=== PATIENT | male | born 1995 | race Caucasian/White ===

== ENCOUNTER 2016-08-30 18:24 | Emergency (ER) | payer MEDICAID, OTHER ==
[~2016-08-30] VITALS: Ht 177.8 cm; Wt 76.2 kg
--- NOTE | 2016-08-30 18:48 | NUR ---
Patient discharged to home in stable conditon. Written and verbal after care instructions given. Patient verbalizes understanding of instructions.
== END 2016-08-30 18:52 | disposition home or self-care (01) ==
LOC: ER 18:27
DX: S01.111A Laceration without foreign body of right eyelid and periocular area, initial encounter (principal); X58.XXXA Exposure to other specified factors, initial encounter; Y93.89 Activity, other specified; Y99.8 Other external cause status; Y92.89 Other specified places as the place of occurrence of the external cause
CPT/HCPCS: 99281; A4663

== ENCOUNTER 2021-12-08 08:33 | Emergency (ER) | payer BC, MEDICAID ==
[~2021-12-08] VITALS: Ht 177.8 cm; Wt 80.3 kg
--- NOTE | 2021-12-08 08:48 | NUR ---
Pt in bed with ice pack on right foot. No increasing pain. with very slight swelling, no redness, with sensation intact and ROM. distal pulses strong. Skin is dry, pink and warm.
--- NOTE | 2021-12-08 08:49 | NUR ---
Xray on the way.
[2021-12-08] MEDS ORDERED: NAPR-1009 PO (09:29)
--- NOTE | 2021-12-08 09:56 | NUR ---
Max wrap done on the right foot. Crutch training by charge nurse Erika including work note.
[2021-12-08 09:59] VITALS: BP 116/68
== END 2021-12-08 09:59 | disposition home or self-care (01) ==
LOC: ER 08:33
DX: S93.401A Sprain of unspecified ligament of right ankle, initial encounter (principal); X50.9XXA Other and unspecified overexertion or strenuous movements or postures, initial encounter; Y93.67 Activity, basketball; Y92.310 Basketball court as the place of occurrence of the external cause; S99.921A Unspecified injury of right foot, initial encounter
CPT/HCPCS: 73610; 73630; A4663

== ENCOUNTER 2022-01-14 19:40 | Emergency (ER) | payer SELFPAY ==
[~2022-01-14 19:40] MED LIST: NAPR-1009 PO
--- NOTE | 2022-01-14 22:00 | NUR ---
PATIENT WAS JUST CALLED TO BE TRIAGED AT THIS TIME DUE TO NO BEDS AVAILABLE IN THE ER AND HIGH ACUITY IN THE ER, BUT PATIENT WAS NOT PRESENT IN THE WAITING ROOM OR OUTSIDE OF ER.
--- NOTE | 2022-01-15 | NUR ---
PATIENT WAS CALLED TO BE TRIAGED BUT WAS NOT PRESENT IN THE WAITING ROOM OR OUTSIDE OF ER. PATIENT WAS NOT TRIAGED OR SEEN BY ERMD.
== END 2022-01-15 | disposition left against medical advice (07) ==
LOC: ER 19:40
DX: Z53.21 Procedure and treatment not carried out due to patient leaving prior to being seen by health care provider (principal)

== ENCOUNTER 2022-01-15 13:56 | Emergency (ER) | payer MEDICAID ==
[~2022-01-15] VITALS: Ht 177.8 cm; Wt 89.4 kg
--- NOTE | 2022-01-15 15:20 | NUR ---
pt resting comfortably in bed, waiting for xray results.
--- NOTE | 2022-01-15 15:51 | NUR ---
Patient discharged to home in stable condition. Written and verbal after care instructions given. Patient verbalizes understanding of instructions. Stressed follow up or return to ER for worsening s/s.
== END 2022-01-15 15:52 | disposition home or self-care (01) ==
LOC: ER 13:56
DX: M79.644 Pain in right finger(s) (principal); S69.91XA Unspecified injury of right wrist, hand and finger(s), initial encounter; X58.XXXA Exposure to other specified factors, initial encounter; Y93.67 Activity, basketball; Y92.310 Basketball court as the place of occurrence of the external cause
CPT/HCPCS: 73140; A4663

== ENCOUNTER 2022-06-27 00:02 | Emergency (ER) | payer MEDICAID ==
[~2022-06-27] VITALS: Ht 177.8 cm; Wt 81.6 kg
--- NOTE | 2022-06-27 00:20 | NUR ---
Pt states he was eating chicken and noticed that his tongue was bleeding. Pt believes he may have chewed a bone and that caused the bleed. Gauze held to mouth to apply pressure.
--- NOTE | 2022-06-27 00:58 | NUR ---
Patient discharged to home in stable condition. No bleeding noted. Written and verbal after care instructions given. Patient verbalizes understanding of instructions. Stressed follow up or return to ER for worsening s/s.
== END 2022-06-27 00:58 | disposition home or self-care (01) ==
LOC: ER 00:02
DX: S01.512A Laceration without foreign body of oral cavity, initial encounter (principal); W45.8XXA Other foreign body or object entering through skin, initial encounter; Y93.89 Activity, other specified; Y92.89 Other specified places as the place of occurrence of the external cause
CPT/HCPCS: A4663

== ENCOUNTER 2023-01-05 01:18 | Emergency (ER) | payer MEDICAID ==
[~2023-01-05] VITALS: Ht 177.8 cm; Wt 81.6 kg
[2023-01-05] MEDS ORDERED: DOCUSATE SODIUM 100 MG/10 ML LIQUID UDC NG ONE (03:45)
[2023-01-05] MEDS ORDERED: DOCUSATE SODIUM 100 MG/10 ML LIQUID UDC ONE (03:55)
[2023-01-05] MEDS ORDERED: DOCUSATE SODIUM 100 MG CAPSULE PO ONE ×2 (04:30→04:39)
[2023-01-05 06:03] VITALS: BP 124/75; TEMP 98; O2SAT 98
== END 2023-01-05 05:55 | disposition home or self-care (01) ==
LOC: ER 01:21
DX: H61.21 Impacted cerumen, right ear (principal); Z79.899 Other long term (current) drug therapy
CPT/HCPCS: A4663